=== PATIENT | female | born 1985 | race Caucasian/White ===

== ENCOUNTER 2017-09-29 09:42 | Emergency (ER) | payer SELFPAY ==
[2017-09-29] MEDS ORDERED: MAGNES/ALUMIN/SIMET 30ML UCUP ONE (11:08)
--- NOTE | 2017-09-29 11:23 | EDPHYS ---
Physician Documentation [facility] Name: Winifred Edwards Age: 32 yrs Sex: Female : 1985 Arrival Date: 09/29/2017 Time: 09:46 Bed 24 Private MD: None, None ED Physician Jann Baez HPI: 09/29 11:13 This 32 yrs old Female presents to ER via Ambulatory with complaints of Chest gs Tightness. 11:13 The patient presents with abdominal pain in the epigastric area. Onset: The gs symptoms/episode began/occurred today, 2 hour(s) ago, after eating. The symptoms do not radiate. Associated signs and symptoms: Pertinent negatives: nausea and vomiting, palpitations, shortness of breath, vomiting. The symptoms are described as dull. Modifying factors: The symptoms are alleviated by nothing, the symptoms are aggravated by nothing. Severity of pain: At its worst the pain was mild in the emergency department the pain is unchanged. brief intermittent episodes of discomfort. 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 - Social history:: Smoking status: Patient uses tobacco products, smokes one-half pack cigarettes per day, Patient/guardian denies using alcohol. - Ebola Screening: : Patient negative for fever greater than or equal to 101.5 degrees Fahrenheit, and additional compatible Ebola Virus Disease symptoms Patient denies exposure to infectious person Patient denies travel to an Ebola-affected area in the 21 days before illness onset. ROS: 11:13 All other systems are negative. gs Exam: 11:13 Head/Face: Normocephalic, atraumatic. Eyes: Pupils equal round and reactive to light, gs extra-ocular motions intact. Lids and lashes normal. Conjunctiva and sclera are non-icteric and not injected. Cornea within normal limits. Periorbital areas with no swelling, redness, or edema. ENT: Nares patent. No nasal discharge, no septal abnormalities noted. Tympanic membranes are normal and external auditory canals are clear. Oropharynx with no redness, swelling, or masses, exudates, or evidence of obstruction, uvula midline. Mucous membranes moist. Neck: Trachea midline, no thyromegaly or masses palpated, and no cervical lymphadenopathy. Supple, full range of motion without nuchal rigidity, or vertebral point tenderness. No Meningismus. Chest/axilla: Normal chest wall appearance and motion. Nontender with no deformity. No lesions are appreciated. Cardiovascular: Regular rate and rhythm with a normal S1 and S2. No gallops, murmurs, or rubs. Normal PMI, no JVD. No pulse deficits. Respiratory: Lungs have equal breath sounds bilaterally, clear to auscultation and percussion. No rales, rhonchi or wheezes noted. No increased work of breathing, no retractions or nasal flaring. Abdomen/GI: Soft, non-tender, with normal bowel sounds. No distension or tympany. No guarding or rebound. No evidence of tenderness throughout. Back: No spinal tenderness. No costovertebral tenderness. Full range of motion. Skin: Warm, dry with normal turgor. Normal color with no rashes, no lesions, and no evidence of cellulitis. MS/ Extremity: Pulses equal, no cyanosis. Neurovascular intact. Full, normal range of motion. Neuro: Awake and alert, GCS 15, oriented to person, place, time, and situation. Cranial nerves II-XII grossly intact. Motor strength 5/5 in all extremities. Sensory grossly intact. Cerebellar exam normal. Normal gait. 11:13 Constitutional: The patient appears alert, awake. 11:13 ECG was reviewed by the Attending Physician. Vital Signs: 09:55 BP 104 / 69; Pulse 80; Resp 18; Temp 98.5(O); Pulse Ox 98% on R/A; Weight 81.65 kg; hj Height 5 ft. 3 in. (160.02 cm); Pain 8/10; 10:22 BP 120 / 92; Pulse 77; Resp 16; Pulse Ox 99% on R/A; aj 11:09 BP 114 / 53; Pulse 73; Resp 18; Pulse Ox 99% on R/A; aj 09:55 Body Mass Index 31.89 (81.65 kg, 160.02 cm) MDM: 10:36 Patient medically screened. 11:13 Differential diagnosis: coronary artery disease, gastroesophageal reflux disease, gs pneumonia. Data reviewed: vital signs, nurses notes. Response to treatment: the patient's symptoms have markedly improved after treatment, and as a result, I will discharge patient. 09/29 10:36 Order name: XRAY Chest Pa And Lat (2 Views) 09/29 09:57 Order name: EKG; Complete Time: :57 EC:13 Rate is 72 beats/min. Rhythm is regular. AL interval is normal. QRS interval is normal. QT interval is normal. T waves are Flattened. Clinical impression: Abnormal EKG without significant change. Interpreted by me. Administered Medications: 11:09 Drug: Maalox Suspension (200 mg-200 mg-20 mg/5 mL) 30 ml Route: PO; 11:33 Follow up: Response: No adverse reaction; Pain is decreased Disposition: 09/29/17 11:23 Discharged to Home. Impression: Chest pain, unspecified. - Condition is Stable. - Discharge Instructions: Nonspecific Chest Pain. - Prescriptions for Pepcid 20 mg Oral Tablet - take 1 tablet by ORAL route every 12 hours for 10 days; 20 tablet. - Medication Reconciliation Form, Thank You Letter, Antibiotic Education, Prescription Opioid Use form. - Follow up: Private Physician; When: 2 - 3 days; Reason: Re-evaluation by your physician. Signatures: Dispatcher [employer] Anu Mederos RN RN aj Joaquin, Henry, RN RN Jann Baez MD MD Corrections: (The following items were deleted from the chart) 11:33 11:23 09/29/2017 11:23 Discharged to Home. Impression: Chest pain, unspecified. aj Condition is Stable. Forms are Medication Reconciliation Form, Thank You Letter, Antibiotic Education, Prescription Opioid Use. Follow up: Private Physician; When: 2 - 3 days; Reason: Re-evaluation by your physician. gs
--- NOTE | 2017-09-29 11:23 | ER ---
Nurse's Notes [facility] Name: Winifred Edwards Age: 32 yrs Sex: Female : 1985 Arrival Date: 09/29/2017 Time: 09:46 Bed 24 Private MD: None, None Diagnosis: Chest pain, unspecified Presentation: 09/29 09:50 Presenting complaint: Patient states: i was sitting in a group from [facility] today when i suddenly felt a heavy chest tightness that lasts about 2 mins or so; reports nausea; reports SOB;. Transition of care: patient was not received from another setting of care. Onset of symptoms was September 29, 2017. Risk Assessment: Do you want to hurt yourself or someone else? Patient reports no desire to harm self or others. Initial Sepsis Screen: Does the patient meet any 2 criteria? No. Patient's initial sepsis screen is negative. Does the patient have a suspected source of infection? No. Patient's initial sepsis screen is negative. Care prior to arrival: None. 09:50 Method Of Arrival: Ambulatory 09:50 Acuity: RODOLFO 3 Triage Assessment: 09:54 General: Appears in no apparent distress. uncomfortable, obese, Behavior is calm, hj cooperative, appropriate for age. Pain: Complains of pain in chest Pain currently is 8 out of 10 on a pain scale. Cardiovascular: Capillary refill < 3 seconds Patient's skin is warm and dry. 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 - Social history:: Smoking status: Patient uses tobacco products, smokes one-half pack cigarettes per day, Patient/guardian denies using alcohol. - Ebola Screening: : Patient negative for fever greater than or equal to 101.5 degrees Fahrenheit, and additional compatible Ebola Virus Disease symptoms Patient denies exposure to infectious person Patient denies travel to an Ebola-affected area in the 21 days before illness onset. Screenin:55 Abuse screen: Denies threats or abuse. Denies injuries from another. Nutritional hj screening: No deficits noted. Tuberculosis screening: No symptoms or risk factors identified. Fall Risk None identified. Assessment: 09:55 Pain: Pain does not radiate. Pain radiates to back Pain began suddenly. hj 10:22 General: Appears in no apparent distress. comfortable, Behavior is calm, cooperative, aj appropriate for age. Pain:. Pain: Denies pain. Cardiovascular: Reports Chest tightness, denies pain Capillary refill < 3 seconds in bilateral fingers Patient's skin is warm and dry. Respiratory: Airway is patent Respiratory effort is even, unlabored, Respiratory pattern is regular, symmetrical. GI: Abdomen is obese, Reports nausea. EENT: Reports dry mouth. 11:31 Reassessment: Patient appears in no apparent distress at this time. No changes from aj previously documented assessment. Patient and/or family updated on plan of care and expected duration. Pain level reassessed. Patient is alert, oriented x 3, equal unlabored respirations, skin warm/dry/pink. Vital Signs: 09:55 BP 104 / 69; Pulse 80; Resp 18; Temp 98.5(O); Pulse Ox 98% on R/A; Weight 81.65 kg; hj Height 5 ft. 3 in. (160.02 cm); Pain 8/10; 10:22 BP 120 / 92; Pulse 77; Resp 16; Pulse Ox 99% on R/A; aj 11:09 BP 114 / 53; Pulse 73; Resp 18; Pulse Ox 99% on R/A; aj 09:55 Body Mass Index 31.89 (81.65 kg, 160.02 cm) ED Course: 09:46 Patient arrived in ED. mr 09:46 None, None is Private Physician. mr 09:52 Triage completed. hj 09:55 Arm band placed on left wrist. hj 09:55 phototypesetting equipment monitor on. Pulse ox on. NIBP on. hj 09:55 Patient has correct armband on for positive identification. Placed in gown. Bed in low hj position. Call light in reach. Side rails up X 1. 09:55 Patient maintains SpO2 saturation greater than 95% on room air. hj 10:22 Anu Strauss, RN is Primary Nurse. aj 10:25 Jann Baez MD is Attending Physician. gs 10:55 X-ray completed. Patient tolerated procedure well. Patient moved back from radiology. [facility] 10:59 XRAY Chest Pa And Lat (2 Views) In Process Unspecified. EDMS 11:31 No provider procedures requiring assistance completed. Patient did not have IV access aj during this emergency room visit. Administered Medications: 11:09 Drug: Maalox Suspension (200 mg-200 mg-20 mg/5 mL) 30 ml Route: PO; aj 11:33 Follow up: Response: No adverse reaction; Pain is decreased aj Outcome: 11:23 Discharge ordered by . gs 11:31 Discharged to home ambulatory. aj 11:31 Condition: good 11:31 Discharge instructions given to patient, Instructed on discharge instructions, follow up and referral plans. medication usage, Demonstrated understanding of instructions, follow-up care, medications, Prescriptions given X 1. 11:33 Patient left the ED. aj Signatures: Dispatcher [employer] EDAZ Anu Strauss RN RN aj Rivera, Maria Selina Russo [facility] Mika Soria RN RN Jann Baez MD MD Corrections: (The following items were deleted from the chart) 09:58 09:55 Pulse 80bpm; Resp 18bpm; Pulse Ox 98% RA; Temp 98.5F Oral; 81.65 kg; Height 5 ft. hj 3 in.; BMI: 31.8; Pain 8/10; hj
--- NOTE | 2017-09-29 12:01 | RAD REPORT ---
EXAM DESCRIPTION: Dwight Gaytan And Opal (2 Views)09/29/2017 11:02 am CLINICAL HISTORY: Chest pain COMPARISON: none FINDINGS: An area of scarring or subsegmental atelectasis are present within the left lung. Otherwis e the lungs are clear. The heart is normal size. Mild thickening of the right minor fissure is noted.
--- NOTE | 2017-09-29 12:56 | EKG ---
Test Date: 2017-09-29 Test Time: 10:01:51 Geriatric Case Manager: RUDY MEASUREMENT RESULTS: Intervals: Rate: 72 AR: 126 QRSD: 66 QT: 394 QTc: 431 [place]: P: 32 AR: 126 QRS: 42 T: 25 INTERPRETIVE STATEMENTS: Normal sinus rhythm Nonspecific T wave abnormality Abnormal ECG No previous ECG available for comparison Electronically Signed On 09-29-17 12:54:59 CDT by Chucky Gutierrez
== END 2017-09-29 11:33 | disposition home or self-care (01) ==
LOC: ER 09:42
DX: R07.9 Chest pain, unspecified (principal); F17.210 Nicotine dependence, cigarettes, uncomplicated; F31.9 Bipolar disorder, unspecified; F41.9 Anxiety disorder, unspecified; Z88.0 Allergy status to penicillin
CPT/HCPCS: 71046; 93005; 99285